=== PATIENT | female | born 1955 | race Caucasian/White ===

== ENCOUNTER → 2018-01-21 | Outpatient (CLI) | payer BC ==
[2018-01-21 09:17] VITALS: BP 149/72; PULSE 69; BMI 30.2
--- NOTE | 2018-01-21 09:39 | P.GSHP ---
History of Present Illness H&P Date: 01/21/18 Chief Complaint: left breast cancer 2014 The patient is a 62-year-old white female who is status post a left breast lumpectomy with radiation and no chemotherapy as she had a low oncotype score. She in late August 2014 noted a lump in the upper outer quadrant of the left breast. Mammogram showed a suspicious area with a solid mass confirmed by ultrasound. 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 This was grade 2, ER/NC positive, and HER-2/skyler +2 by IHC and negative by Fish. On 11/01 she underwent a lumpectomy which revealed a 1.7 x 1 cm tumor with the same histology. Anterior medial and inferior margins were involved in the excision was performed which was negative. Serial 3 sentinel nodes were involved. She was referred for evaluation to medical oncology. An Oncotype DX was performed which showed low to intermediate risk for recurrence score of 19. She proceeded with radiation therapy and was started on anastrozole. She is on calcium plus vitamin D for mild osteopenia. The patient states her last mammogram was in July 2017 and was reportedly negative. She was scheduled for repeat bilateral mammogram in July 2018. The patient is doing well at this time with no questions or concerns. Family history: 1. Father possible leukemia 2. paternal cousin: pancreatic cancer 3. paternal cousin: prostate Hormonal history menarche: 11 : 1, 1 child, at age of 37, breast fed: none menopause: 52 BCP: 20 years hormones: none Past Surgical History: 1. tonsil 2. left breast lumpectomy and re-excision, and SNB Past Medical History: 1. osteopenia 2. HTN 3. carpel tunnel Social History: smoke: 2 PPD, stopped in 2008 alcohol: occasional drugs: none - Constitutional Comment: sweats started on anestrazole Constitutional: Reports sweats - EENT Eyes: denies blurred vision, denies pain Ears: deny: decreased hearing, tinnitus Ears, nose, mouth and throat: Denies headache, Denies sore throat - Breasts Breasts: bilateral: as per HPI - Cardiovascular Cardiovascular: Reports high blood pressure - Respiratory Respiratory: Denies cough, Denies 7 - Gastrointestinal Gastrointestinal: Denies abdominal pain, Denies diarrhea, Denies nausea, Denies vomiting - Genitourinary (Female) Genitourinary: Denies dysuria, Denies hematuria - Menstruation Menstruation: Reports postmenopausal - Musculoskeletal Comment: ostepenia carpal tunnel - Integumentary Integumentary: Denies pruritus, Denies rash - Neurological Neurological: Denies numbness, Denies weakness - Psychiatric Psychiatric: Reports anxiety - Endocrine Endocrine: Denies fatigue, Denies weight change - Hematologic/Lymphatic Comment: none Hematologic/Lymphatic: Reports as per HPI - Allergic/Immunologic Comment: none Past Medical History Past Medical History: Cancer Additional Past Medical History / Comment(s): ostepenia, History of Any Multi-Drug Resistant Organisms: None Reported Past Surgical History: Breast Surgery, Tonsillectomy Past Anesthesia/Blood Transfusion Reactions: No Reported Reaction Smoking Status: Former smoker - Past Family History Father Additional Family Medical History / Comment(s): possible lukemia Mother Family Medical History: Congestive Heart Failure (CHF) Brother(s) Family Medical History: No Reported History Surgical - Exam Vital Signs Pulse BP Pulse Ox 69 149/72 98 01/21/18 09:11 01/21/18 09:11 01/21/18 09:11 - General well developed, well nourished, no distress - Eyes normal ocular movement, no icteric - ENT no hearing loss, no congestion - Neck no masses, trachea midline - Respiratory normal respiratory effort, clear to auscultation - Cardiovascular Rhythm: regular Heart Sounds: normal: S1, S2 - Abdomen Abdomen: soft, non tender, no guarding, no rigid, no rebound - Neurologic no disoriented, no combative - Musculoskeletal normal gait, normal posture - Psychiatric oriented to time, oriented to person, oriented to place, speech is normal, memory intact Breast examination: Right breast: Multiple positional exam no dominant masses or nodules of concern Right axilla: No adenopathy of concern Left breast: Multiple positional exam no dominant masses or nodules of concern, well-healed scar from prior lumpectomy no evidence of recurrent disease Left axilla: No adenopathy of concern Assessment and Plan Assessment: Impression/plan: 1. Status post left breast lumpectomy 2014 no evidence of recurrent disease patient presently on anastrozole 2. Bilateral mammogram in July 2017 will obtain results 3. Mild hypertension 4. Carpal tunnel disease 5. Osteopenia Plan: 1. Continue surveillance to rule out recurrent breast cancer patient will have repeat bilateral mammogram in July 2018 2. Follow-up in 6 months time 3. Medical management of medical problems Cc: Dr. Zapata
== END ==
LOC: WWCWWP 09:05
PROVIDERS: ATTEND Surgery
DX: Z53.9 Procedure and treatment not carried out, unspecified reason (principal)

== ENCOUNTER → 2018-07-29 | Outpatient (CLI) | payer BC ==
[2018-07-29 09:41] VITALS: BP 144/90; PULSE 83; RESP 16; TEMP 98.1; BMI 30.7
--- NOTE | 2018-07-29 09:57 | P.PN ---
Subjective Progress Note Date: 07/29/18 Principal diagnosis: Left breast cancer 2014 Nevin is a 62-year-old white female who is status post left breast lumpectomy and sentinel node biopsy in 2014. She had a 1.7 cm tumor with a 0 of 3 sentinel nodes involved. Postprocedure she had an Oncotype DX test performed which was low and did not receive chemotherapy. She was ER/KY positive and HER-2 negative. She did receive radiation therapy and is presently on anastrozole. Patient did complain of some discomfort which was progressive in her left shoulder, left wrist, and right elbow in 2016. The patient had partial relief with nonsteroidal anti-inflammatories. The anastrozole was stopped and she was placed and nonsteroidals for approximately a week. Laboratory studies were negative other than a mildly positive CLARENCE which was nonspecific. A bone scan was performed which was negative. She was referred to rheumatology and additional labs did not reveal any evidence of autoimmune disease. Her wrist pain was felt to be secondary to carpal tunnel syndrome in the right elbow pain from tennis elbow. She was given local injections and a Medrol Dosepak with marked improvement. She did resume the anastrozole. The patient at this time as no complaints related to her left shoulder, right elbow or her left wrist. She does still have some complaints on the right wrist which is believed to be related to carpal tunnel syndrome. She does complain of sweating related to the anastrozole, she feels that this has gotten worse recently. She has addressed this with a medical oncologist to want to redress it in 6 months. She has continued to take calcium and vitamin D. Her last mammogram was 2 weeks ago at [facility]. She received a verbal report that this was okay however we do not have the report. Family history: 1. Father: Possible leukemia 2. Paternal cousin: Pancreatic cancer 2. Paternal cousin: Prostate cancer Hormonal history: Menarche: 11 Pregnancies: 1, 1 child age of 37, press-fit: Negative Menopause: 52 Procedure proposed: 20 years Hormones: Negative Past surgical history: 1. Tonsillectomy 2. Left breast lumpectomy with reexcision and sentinel node biopsy Past medical history: 1. Osteopenia 2. Hypertension 3. Carpal tunnel Social history: Smoke: 2 packs per day stopped in 2008 Alcohol: Occasional Drugs: Negative Review of systems Constitutional: Sweating related to anastrozole : Hypertension Respiratory: Denies cough GI: Negative : Negative Musculoskeletal: Osteoarthritis, carpal tunnel Integument: Negative Neurologic: Negative Psychiatric: Endocrine: Negative Hematologic: Negative ALLERGIC: Negative Objective - Vital Signs Vital signs: Intake & Output 07/28/18 07/29/18 07/29/18 18:59 06:59 18:59 Weight 83.915 kg - Exam BMI 30.8 - Constitutional General appearance: Present: obese - EENT Eyes: Present: EOMI ENT: Present: hearing grossly normal - Neck Neck: Present: normal ROM - Respiratory Respiratory: bilateral: CTA - Cardiovascular Rhythm: regular Heart sounds: normal: S1, S2 - Gastrointestinal General gastrointestinal: Present: soft - Integumentary Integumentary Comment(s): Patient has reversed her as him on her lower chin using her shaving Integumentary: Present: normal turgor - Musculoskeletal Musculoskeletal: Present: gait normal - Psychiatric Psychiatric: Present: A&O x's 3, appropriate affect, intact judgment & insight - Additional findings Additional findings: Breast examination: Right breast: Multi-positional exam no dominant masses or nodules of concern Right axilla: No adenopathy of concern Left breast: Well-healed scar from prior lumpectomy, multiple positional exam no dominant masses or nodules of concern Left axilla: No adenopathy of concern Assessment and Plan Assessment: Impression: 1. Patient status post left breast lumpectomy, radiation therapy, on anastrozole for a T1 N0 M0 ER positive [place] positive HER-2/skyler negative left breast cancer in 2014 2. Patient remains on anastrozole and has developed her stress him 3. Anxiety 4. Carpal tunnel on the right 5. Osteopenia 6. Mild hypertension 7. No evidence of recurrent breast cancer 8. Constant sweating Plan: 1. The patient's swelling and history is them may be related to the anastrozole , have recommended counseling with Dr. Mei medical oncology with respect to this 2. Continued surveillance for breast cancer repeat bilateral mammogram in 1 year 3. Repeat physician visit in 6 months 4. Medical management of medical conditions CC:Jodi
== END | disposition home or self-care (01) ==
LOC: WWCWWP 09:09
PROVIDERS: ATTEND Surgery
DX: Z53.9 Procedure and treatment not carried out, unspecified reason (principal)